=== PATIENT | female | born 1980 | race Caucasian/White ===

== ENCOUNTER 2016-11-08 06:03 | Emergency (ER) | payer MEDICAID, OTHER ==
[~2016-11-08] VITALS: Ht 170.2 cm; Wt 60.0 kg
[2016-11-08 06:09] VITALS: Ht 170.2 cm; Wt 60.0 kg
[2016-11-08 07:05] LABS: ADD SCAN DIFF NO
[2016-11-08 07:06] LABS: BASOPHILS % 0.1 % (0.0-2.0); EOSINOPHILS # 0.1 10^3/ul (0.0-0.5); EOSINOPHILS % 1.2 % (0.0-7.0); HEMATOCRIT 29.3 % (37.0-47.0); HEMOGLOBIN 8.5 g/dl (12.0-16.0); LYMPHOCYTES # 1.5 10^3/ul (0.8-2.9); LYMPHOCYTES % 14.4 % (15.0-51.0); MEAN CORPUSCULAR HEMOGLOBIN 20.6 pg (29.0-33.0); MEAN CORPUSCULAR VOLUME 71.1 fl (82.0-101.0); MEAN PLATELET VOLUME 9.2 fl (7.4-10.4); MONOCYTE # 0.8 10^3/ul (0.3-0.9); MONOCYTES % 8.1 % (0.0-11.0); NEUTROPHIL # 7.7 10^3/ul (1.6-7.5); NEUTROPHILS % 75.5 % (39.0-77.0); PLATELET COUNT 430 10^3/UL (140-415); RED BLOOD COUNT 4.12 10^6/ul (4.20-5.40); RED CELL DISTRIBUTION WIDTH 17.1 % (11.5-14.5); WHITE BLOOD COUNT 10.2 10^3/ul (4.8-10.8)
[2016-11-08 07:30] LABS: ALBUMIN 4.1 g/dl (3.3-4.9); POTASSIUM 3.1 mmol/L (3.5-5.1)
[2016-11-08 07:32] LABS: CREATININE 0.66 mg/dl (0.44-1.00)
[2016-11-08 07:33] LABS: ALBUMIN/GLOBULIN RATIO 1.28; BILIRUBIN,INDIRECT 0.4 mg/dl (0-1.1); BILIRUBIN,TOTAL 0.4 mg/dl (0.2-1.3); CALCIUM 9.4 mg/dl (8.4-10.2); TOTAL PROTEIN 7.3 g/dl (6.1-8.1)
[2016-11-08] MEDS: LORAZEPAM 2 MG INJ IM ONE ×2 (08:35→08:37)
[2016-11-08 08:50] LABS: ACETAMINOPHEN < 10.0 ug/ml (10.0-30.0); ETHANOL < 10.0 mg/dl; SALICYLATE < 1.0 mg/dl (5.0-30.0)
[2016-11-08] MEDS ORDERED: ONDANSETRON 4 MG INJ IV STA (09:06)
[2016-11-08] MEDS ORDERED: HYDROmorphONE 1 MG/ML SYG IV STA (09:06)
--- NOTE | 2016-11-08 10:07 | RADRPT ---
PROCEDURE: CT Brain without contrast. CLINICAL INDICATION: Altered mental status. TECHNIQUE: A CT of the brain was performed on a multidetector CT scanner utilizing axial sections from the skull base through the vertex without contrast. Images were reviewed on a high-resolution [employer] workstation. Exam CTDI = 45.01 mGy and the DLP = 720.23 mGy-cm. One or more of the following dose reduction techniques were used: Automated exposure control Adjustment of the mA and/or kV according to patient size. Use of iterative reconstruction technique. COMPARISON: None available FINDINGS: There is no evidence of intracranial hemorrhage, mass effect or midline shift. No abnormal intra-ax ial or extra-axial fluid collections are seen. The density of the brain is normal and the dalal/whit e matter differentiation is well preserved. The osseous structures are unremarkable. Paranasal sin uses are clear. IMPRESSION: 1. No intracranial hemorrhage, mass effect or midline shift. RPTAT: PP .Royal Dillon MD, MD Date Time Electronically viewed and signed by .Royal Dillon MD, on 11/08/2016 10:07 .O/
[2016-11-08 10:17] LABS: BARBITURATES NEGATIVE (NEGATIVE); BENZODIAZEPINES POSITIVE (NEGATIVE); CANNABINOIDS NEGATIVE (NEGATIVE); COCAINE NEGATIVE (NEGATIVE); OPIATES NEGATIVE (NEGATIVE)
--- NOTE | 2016-11-08 12:59 | ERA ---
ER Documentation Chief Complaint Date/Time DATE: 11/08/16 TIME: 12:52 Chief Complaint HPI This is a 36-year-old female brought into the emergency room prior to my arrival my shift this morning. Patient was extremely belligerent with EMS and she required 4 point restraints in order to be put into her stretcher . the patient was apparently found in the streets acting "crazy". The patient admits to using methamphetamines yesterday and this morning. She is a very limited historian. The patient's not very forthcoming on her symptoms or which she has been doing for the past 24 hours. She tends to just stare at me and answer minimal questions. She is denying any pain currently ROS All systems reviewed and are negative except as per history of present illness. Medications Home Meds Unable to Obtain Active Prescriptions or Reported Meds Allergies Allergies: Coded Allergies: No Known Allergy (Unverified , 11/08/16) PMhx/Soc Medical and Surgical Hx: Unable to obtain Hx Substance Use: Yes (meth use this morning) Smoking Status: Unknown if ever smoked FmHx Family History: No coronary disease Physical Exam Vitals Vital Signs Date Time Temp Pulse Resp B/P Pulse Ox O2 Delivery O2 Flow Rate FiO2 11/08/16 09:42 92 16 123/84 96 Room Air 11/08/16 06:13 85 17 100 Room Air 11/08/16 06:09 98.3 92 16 118/66 99 Physical Exam Const: Well-developed, well-nourished Head: Atraumatic, normocephalic Eyes: Normal Conjunctiva, PERRLA, EOMI, normal sclera, no nystagmus ENT: Normal External Ears, Nose and Mouth, moist mucus membranes. Neck: Full range of motion. No meningismus, no lymphadenopathy. Resp: Clear to auscultation bilaterally, no wheezing, rhonchi, rales Cardio: Regular rate and rhythm, no murmurs, S1 S2 present Abd: Soft, non tender x 4, non distended. Normal bowel sounds, no guarding or rebound, no pulsitile abdominal masses or bruits Skin: No petechiae or rashes, no ecchymosis , no maculopapular rash Back: No midline or flank tenderness Ext: No cyanosis, or edema, FROM x 4, normal inspection, neurovascularly intact x 4 Neur: Awake and alert, STR 5/5 x 4, sensation intact x 4, no focal findings, cerebellum intact Psych: [Patient has a flat affect. She stares to me for prolonged periods of time and then will answer some basic questions. She says she did use methamphetamines, denies suicidal ideation Result Diagram: 11/08/16 0650 11/08/16 0650 Results 24 hrs Laboratory Tests Test 11/08/16 06:50 11/08/16 09:00 White Blood Count 10.210^3/ul Red Blood Count 4.1210^6/ul Hemoglobin 8.5g/dl Hematocrit 29.3% Mean Corpuscular Volume 71.1fl Mean Corpuscular Hemoglobin 20.6pg Mean Corpuscular Hemoglobin Concent 29.0g/dl Red Cell Distribution Width 17.1% Platelet Count 16014^3/UL Mean Platelet Volume 9.2fl Neutrophils % 75.5% Lymphocytes % 14.4% Monocytes % 8.1% Eosinophils % 1.2% Basophils % 0.1% Nucleated Red Blood Cells % 0.0/100WBC Neutrophils # 7.710^3/ul Lymphocytes # 1.510^3/ul Monocytes # 0.810^3/ul Eosinophils # 0.110^3/ul Basophils # 0.010^3/ul Nucleated Red Blood Cells # 0.010^3/ul Sodium Level 142mmol/L Potassium Level 3.1mmol/L Chloride Level 104mmol/L Carbon Dioxide Level 26mmol/L Anion Gap 15 Blood Urea Nitrogen 11mg/dl Creatinine 0.66mg/dl Glucose Level 110mg/dl Calcium Level 9.4mg/dl Total Bilirubin 0.4mg/dl Direct Bilirubin 0.00mg/dl Indirect Bilirubin 0.4mg/dl Aspartate Amino Transf (AST/SGOT) 38IU/L Alanine Aminotransferase (ALT/SGPT) 39IU/L Alkaline Phosphatase 72IU/L Total Protein 7.3g/dl Albumin 4.1g/dl Globulin 3.20g/dl Albumin/Globulin Ratio 1.28 Serum HCG, Qualitative NEGATIVE Salicylates Level < 1.0mg/dl Acetaminophen Level < 10.0ug/ml Ethyl Alcohol Level < 10.0mg/dl Urine Opiates Screen NEGATIVE Urine Barbiturates NEGATIVE Urine Amphetamines Screen POSITIVE Urine Benzodiazepines Screen POSITIVE Urine Cocaine Screen NEGATIVE Urine Cannabinoids NEGATIVE Current Medications Medications (Trade) Dose Ordered Sig/Miah Route PRN Reason Start Time Stop Time Status Last Admin Dose Admin Lorazepam (Ativan) 2 mg ONCE ONCE IM 11/08/16 08:00 11/08/16 08:01 DC 11/08/16 08:37 Hydromorphone HCl (Dilaudid) 1 mg ONCE STAT IV 11/08/16 09:06 11/08/16 09:07 DC 11/08/16 09:32 Ondansetron HCl (Zofran Inj) 4 mg ONCE STAT IV 11/08/16 09:06 11/08/16 09:07 DC 11/08/16 09:32 Procedures/MDM During the workup the patient try to run out of the emergency room. She was obtained by 3 of our staff and brought back into the ER She was yelling and cursing in Wolof talking about the devil She was put back into her room given some sedation. We will get more labs and psych workup and have her evaluated by telemetry psych. Patient does not seem stable to be discharged just based on her methamphetamine use. The patient is a very strange affect seems to be bordering on psychotic PROCEDURE: CT Brain without contrast. CLINICAL INDICATION: Altered mental status. TECHNIQUE: A CT of the brain was performed on a multidetector CT scanner utilizing axial sections from the skull base through the vertex without contrast. Images were reviewed on a high-resolution PACS workstation. Exam CTDI = 45.01 mGy and the DLP = 720.23 mGy-cm. One or more of the following dose reduction techniques were used: Automated exposure control Adjustment of the mA and/or kV according to patient size. Use of iterative reconstruction technique. COMPARISON: None available FINDINGS: There is no evidence of intracranial hemorrhage, mass effect or midline shift. No abnormal intra-axial or extra-axial fluid collections are seen. The density of the brain is normal and the dalal/white matter differentiation is well preserved. The osseous structures are unremarkable. Paranasal sinuses are clear. IMPRESSION: 1. No intracranial hemorrhage, mass effect or midline shift. RPTAT: PP .Royal Dillon MD, MD Date Time Electronically viewed and signed by .Royal Dillon MD, on 11/08/2016 10:07 .O/ CC: JEREMI HARP DO I paged his telemetry psychiatrist for evaluation Patient will likely be transferred to psych facility Departure Diagnosis: Primary Impression: Drug use Additional Impression: Psychosis Qualified Code: F29 - Psychosis, unspecified psychosis type Condition: Stable JEREMI HARP DO November 08, 2016 12:59
--- NOTE | 2016-11-08 13:55 | PSY ---
Date/Time of Note Date/Time of Note DATE: 11/08/16 TIME: 16:47 Psychiatric Subjective Eval Consent Pt consented to telemedicine: Yes Subjective Evaluation Patient location: emergency Chief Complaint: erratic behavior History of present illness HPI (interview performed with nurse interpreting): The patient is a 36 yo female with no formal psych hx. She was bib ems called by neighbors early this morning as pt was acting erratically (screaming). This was occurring in the context of pt using methamphetamine.She reports she has been using methamphetamine for several days and has been erratic for several days, including jumping off of a one story celing while intoxicated. Pt denies any other psych sxs, denies depression, si, ah. Past Psych Hx: pt denies any psych hx or treatment of any sort, no suicide attempts PMhx: pt denies Meds: pt denies All: pt denies MSE: appears tired, like she just woke up (appears that she did just wake up), cooperative, normal speech, somewhat tired, organized, no delusions, was a bit confused about details but was able to remember, no avh no delusions no si/hi Soc Hx: Reports that she lives with a roommate, looking for a job Medical history Problems Medical Problems: (1) Drug use Status: Acute (2) Psychosis Status: Acute Allergies: Coded Allergies: No Known Allergy (Unverified , 11/08/16) Psychiatric Objective Eval Mental Status Examination: Laboratory Results Laboratory Tests Test 11/08/16 06:50 11/08/16 09:00 White Blood Count 10.210^3/ul Red Blood Count 4.1210^6/ul Hemoglobin 8.5g/dl Hematocrit 29.3% Mean Corpuscular Volume 71.1fl Mean Corpuscular Hemoglobin 20.6pg Mean Corpuscular Hemoglobin Concent 29.0g/dl Red Cell Distribution Width 17.1% Platelet Count 73429^3/UL Mean Platelet Volume 9.2fl Neutrophils % 75.5% Lymphocytes % 14.4% Monocytes % 8.1% Eosinophils % 1.2% Basophils % 0.1% Nucleated Red Blood Cells % 0.0/100WBC Neutrophils # 7.710^3/ul Lymphocytes # 1.510^3/ul Monocytes # 0.810^3/ul Eosinophils # 0.110^3/ul Basophils # 0.010^3/ul Nucleated Red Blood Cells # 0.010^3/ul Sodium Level 142mmol/L Potassium Level 3.1mmol/L Chloride Level 104mmol/L Carbon Dioxide Level 26mmol/L Anion Gap 15 Blood Urea Nitrogen 11mg/dl Creatinine 0.66mg/dl Glucose Level 110mg/dl Calcium Level 9.4mg/dl Total Bilirubin 0.4mg/dl Direct Bilirubin 0.00mg/dl Indirect Bilirubin 0.4mg/dl Aspartate Amino Transf (AST/SGOT) 38IU/L Alanine Aminotransferase (ALT/SGPT) 39IU/L Alkaline Phosphatase 72IU/L Total Protein 7.3g/dl Albumin 4.1g/dl Globulin 3.20g/dl Albumin/Globulin Ratio 1.28 Serum HCG, Qualitative NEGATIVE Salicylates Level < 1.0mg/dl Acetaminophen Level < 10.0ug/ml Ethyl Alcohol Level < 10.0mg/dl Urine Opiates Screen NEGATIVE Urine Barbiturates NEGATIVE Urine Amphetamines Screen POSITIVE Urine Benzodiazepines Screen POSITIVE Urine Cocaine Screen NEGATIVE Urine Cannabinoids NEGATIVE Assessment and Plan Assessment/Diagnosis 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 Appears to be sobering now. Currently has no psychotic sxs and no si/hi. She is nto at acute risk of harm to herself or others and when not using is able to care for herself in the community. However , she is at chronic risk of harm to herself with persistent drug use. -pt can likely be discharged. However, before she can be discharged must obtain parallel hx from either her roommate or someone very close who can confirm that besides very recent drug use has not been acting bizarrely; if this cannot be obtain must reconsider hospitalization -if discharged would also have to have fu outpatient psych appt within 24-48 hours, with substance focus 2525 Recommendation: Release PING June November 08, 2016 13:55
[2016-11-08] MEDS ORDERED: IOHEXOL 300MG/ML 150 ML BTL ONE (16:25)
[2016-11-08] MEDS ORDERED: SOD CHLORIDE 0.9% 100 ML ONE (16:25)
[2016-11-08] MEDS ORDERED: ONDANSETRON 4 MG INJ IV ONE (16:30)
[2016-11-08] MEDS ORDERED: morphine 2 MG INJ IV ONE (16:30)
--- NOTE | 2016-11-08 16:57 | RADRPT ---
PROCEDURE: XR Chest. CLINICAL INDICATION: Trauma TECHNIQUE: Single frontal view of the chest was obtained. COMPARISON: None. FINDINGS: The heart and mediastinum are within normal limits. The lungs are clear. There is no significant pleural effusion or pneumothorax. IMPRESSION: No acute disease. RPTAT: EE Physician Gina Date Time Electronically viewed and signed by Gasper Butt Physician on 11/08/2016 16:56 RA/
--- NOTE | 2016-11-08 17:40 | EN ---
Date/Time of Note Date/Time of Note DATE: 11/08/16 TIME: 17:38 ER Progress Note The patient was about to be discharged when the nurse brought to my attention of the patient was now reporting that she jumped or fell out of a second story building. She is describing lumbar back pain. The patient is a very difficult historian. 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 The patient does appear to be uncomfortable however was reported to me that she was ambulatory in the emergency room. Now she is refusing to sit for because of the pain. The patient had a psychiatric evaluation and was deemed ready to discharge. However at this point she is stating that a voice in her head told her to jump off of this second-story floor. Repeat physical exam Airway is intact Bilateral breath sounds Strong distal pulses No obvious deficits General: Well developed, well nourished, somewhat uncomfortable Head: Normocephalic, atraumatic Eyes: Pupils equally reactive, EOM intact ENT: Moist mucous membranes Neck: Supple, no lymphadenopathy, No midline tenderness, deformities, step-offs to the cervical spine, full active and passive range of motion without midline pain. Respiratory: Lungs clear bilaterally, no distress, no chest wall tenderness, no crepitus Cardiovascular: RRR, no murmurs, rubs, or gallops Abdominal: Soft, mild diffuse tenderness that appears to be inconsistent, non- distended, no peritoneal signs, pelvis is stable : Deferred MSK: No edema, no unilateral swelling, 5/5 strength, no midline tenderness deformities or step-offs to the thoracolumbar spine, paraspinal soft tissue tenderness to the lumbar back Neurologic: Alert and oriented, moving all extremities, normal speech, no focal weakness, no cerebellar signs Skin: No ecchymoses or bruising to the chest or abdomen Psych: Flat affect, hallucinations, potential suicidal thoughts, disorganized The patient is a difficult historian. For this reason I believe CT imaging of the lumbar spine and abdomen and pelvis would be appropriate. Chest x-ray will also be obtained. I believe the patient would benefit from repeat telemetry medicine psychiatry evaluation as this is new information I am concerned for the patient's well-being as she is disorganized and having hallucinations telling her to hurt herself. Inpatient hospitalization may be appropriate and necessary. Diagnostic imaging: Chest x-ray: I reviewed and interpreted a 1 view of the chest Mediastinum: No enlargement Cardiac silhouette: No cardiomegaly Airspace: Clear lung hawley bilaterally without evidence of pneumothorax Bones: No evidence of fracture PAOLO LEWIS MD November 08, 2016 17:40
--- NOTE | 2016-11-08 18:22 | RADRPT ---
PROCEDURE: CT lumbar spine without contrast CLINICAL INDICATION: Trauma, back pain. TECHNIQUE: A CT scan of the lumbar spine was performed without intravenous contrast. Coronal and s agittal reformatted images were generated. CTDIvol: 8.43 mGy. DLP: 149.98 mGy-cm. One or more of the following dose reduction techniques were used: - Automated exposure control. - Adjustment of the mA and/or kV according to patient size. - Use of iterative reconstruction technique. COMPARISON: None. FINDINGS: There is an acute L2 Chance fracture with 40% loss of vertebral body height and 11 mm retropulsion, leading to severe spinal canal stenosis at this level. There is also fracture line extension throug h the right lamina and widening of the interspinous interval at L1-L2. There is also widening of the interspinous interval at L2-L3. Bone mineralization is normal and there is no suspicious osseous lesion. T12-L1 through L3-L4: There is no significant degenerative change. No spinal canal stenosis or neur al foraminal narrowing is seen. L4-L5: There is minimal disk bulging without spinal canal stenosis. Minimal bilateral neural forami nal narrowings noted due to disk bulging. L5-S1: There is mild posterior bulging without spinal canal stenosis. Mild bilateral neural foramin al narrowing is noted due to disk bulging. The extra spinal soft tissues are unremarkable. IMPRESSION: 1. Acute L2 Chance fracture with 40% loss of vertebral body height and 11 mm retropulsion, leading to severe spinal canal stenosis at this level. There is also fracture line extension through the ri ght lamina. This is an unstable three column fracture. 2. Widening of the interspinous intervals at L1-L2 and L2-L3, consistent with interspinous ligament injuries at these levels. Call report: A call report of the findings was made to Dr. Martin at 06:18 p.m. on 11/08/2016. RPTAT: HTAR .Surya Hill MD, MD Date Time Electronically viewed and signed by .Surya Hill MD, on 11/08/2016 18:22 .R/
[2016-11-08] MEDS ORDERED: OLANZAPINE (ODT) 5 MG TAB ODT STA (18:23)
--- NOTE | 2016-11-08 18:29 | RADRPT ---
PROCEDURE: CT of the abdomen and pelvis CLINICAL INDICATION: Trauma with abdominal pain TECHNIQUE: The study was performed utilizing a [employer] 64-slice multidetector CT scanner. Dir ect spiral axial sections were obtained through the abdomen and pelvis with intravenous contrast. Af ter administration of 90 cc of Omnipaque-300, postcontrast images were obtained. Coronal and sagitt al reformatted images were performed. The CTDI vol is 5.1 mGy and the DLP is 276.16 mGy-cm. The cherelle ges were reviewed on a PACS workstation. COMPARISON: No prior studies are available for comparison. FINDINGS: CT abdomen: The lung bases are clear. The heart is not enlarged. No pericardial effusion is seen. The liver is normal in size and contour. No focal liver lesions or intrahepatic biliary dilatation is seen. The gallbladder is normal. No common bile duct dilatation is seen. The spleen, pancreas, a nd adrenal glands are unremarkable in appearance. The kidneys are normal in size and contour enhance normally. No evidence of hydronephrosis or nephrolithiasis is seen. The stomach is unremarkable. The large bowel is stool-filled. The small and large bowel are otherwi se unremarkable in course and caliber. No inflammatory changes in the periappendiceal region is see n. No enlarged lymph nodes or fluid collections are seen. The aorta is normal in caliber. CT pelvis: A fracture of the superior endplate of L2 is seen with approximately 10 mm of retropulsio n. Compromise of greater than 50% of the central canal is seen. A focal kyphotic deformity is seen at L2. No other fracture is seen. No subluxation is seen. No pelvic mass, adenopathy, or focal fl uid collection is seen. There is no free fluid. The urinary bladder is normal. A small right adnex al cystic structure is seen measuring approximately 2.3 x 1.4 cm in size. The remaining pelvic organ s are unremarkable. IMPRESSION: 1. L2 superior endplate fracture with approximate 10 mm of retropulsion with compromise of good and 50% of the central canal with a focal kyphotic deformity. 2. Stool filled large bowel. 3. Small right adnexal cystic structure which may be physiologic in nature. Results were discussed with Serafin Martin at 11/08/2016 6:27:50 PM RPTAT: HPNM Carlos Mendez, Physician Date Time Electronically viewed and signed by Carlos Mendez, Physician on 11/08/2016 18:29 /
--- NOTE | 2016-11-08 18:56 | RADRPT ---
PROCEDURE: XR Right Foot. CLINICAL INDICATION: Trauma. Right foot pain. TECHNIQUE: Three views. Frontal, lateral, and oblique. COMPARISON: None. FINDINGS: There is no fracture or dislocation. The soft tissues are normal. Articular surfaces are intact. There is no lytic or blastic lesion. There is no radiopaque foreign body. IMPRESSION: 1. Normal images of the right foot. RPTAT: QQ .Thuan Alcala MD, MD Date Time Electronically viewed and signed by .Thuan Alcala MD, on 11/08/2016 18:56 .R/
--- NOTE | 2016-11-08 18:56 | RADRPT ---
PROCEDURE: XR Left Foot. CLINICAL INDICATION: Trauma due to a fall. Left foot pain. TECHNIQUE: Three views. Frontal, lateral, and oblique. COMPARISON: None. FINDINGS: There is no fracture or dislocation. The soft tissues are normal. Articular surfaces are intact. There is no lytic or blastic lesion. There is no radiopaque foreign body. IMPRESSION: 1. Normal images of the left foot. RPTAT: QQ .Thuan Alcala MD, MD Date Time Electronically viewed and signed by .Thuan Alcala MD, on 11/08/2016 18:56 .R/
--- NOTE | 2016-11-08 19:52 | RADRPT ---
PROCEDURE: CT cervical spine without contrast CLINICAL INDICATION: Trauma. Neck pain. TECHNIQUE: CT scan of the cervical spine was performed on a multidetector scanner. No IV contrast was administered. Coronal and sagittal reformatted images were obtained from the axial source imag es. Images were reviewed on a high-resolution PACS workstation. Exam CTDlvol = 22 mGy and DLP = 510 mGy-cm. One of the following 3 dose reduction techniques were used: Automated exposure control; ad justment of the mA and/or kV according to patient size; or use of iterative reconstruction technique . COMPARISON: None available FINDINGS: No fracture is identified. There is maintenance of height of the vertebral bodies. There is mild r eversal of the normal cervical lordosis. Alignment is otherwise maintained. There is no spondyloli sthesis. Degenerative changes are present, greatest at C6-7. Prevertebral soft tissues are unremar kable. IMPRESSION: 1. No fracture. 2. Mild reversal of the normal cervical lordosis most commonly seen with spasm versus positioning. 3. Mild degenerative changes greatest at C6-7. RPTAT: HMVK .Michael Costello MD, MD Date Time Electronically viewed and signed by .Michael Costello MD, MD on 11/08/2016 19:52 .K/
--- NOTE | 2016-11-08 19:59 | RADRPT ---
PROCEDURE: CT thoracic spine without contrast CLINICAL INDICATION: Trauma. Pain. TECHNIQUE: CT scan of the thoracic spine was performed a multidetector scanner. No IV contrast wa s administered. Coronal and sagittal reformatted images were obtained from the axial source images. Exam CTDlvol = 60 mGy and DLP = 604 mGy-cm. One of the following 3 dose reduction techniques wer e used: Automated exposure control; adjustment of the mA and/or kV according to patient size; or use of iterative reconstruction technique. COMPARISON: None available FINDINGS: Alignment remains intact. There is no spondylolithesis. No acute fracture is seen. There is maint enance of height of the vertebral bodies. No gross degenerative changes are noted. Paravertebral s oft tissues are unremarkable. IMPRESSION: 1. No acute post-traumatic abnormality. RPTAT: HMVK .Michael Costello MD, MD Date Time Electronically viewed and signed by .Michael Costello MD, MD on 11/08/2016 19:58 .K/
--- NOTE | 2016-11-08 20:05 | RADRPT ---
PROCEDURE: CT Chest without contrast. CLINICAL INDICATION: Trauma, chest pain. TECHNIQUE: A CT scan of the chest without contrast was performed. Coronal and sagittal reformatted images were obtained from the axial source images. CTDIvol: 8.41 mGy. DLP: 320.75 mGy-cm. One or more of the following dose reduction techniques were used: - Automated exposure control. - Adjustment of the mA and/or kV according to patient size. - Use of iterative reconstruction technique. COMPARISON: None. FINDINGS: There is no suspicious thyroid lesion. No thoracic lymphadenopathy is seen. The trachea and mainst em bronchi are patent. The heart is not enlarged. There is no pericardial effusion. There is mild atelectasis in both lower lobes. No pleural effusion or pneumothorax is identified. Limited evaluation of the upper abdomen is unremarkable. There is no suspicious osseous lesion. IMPRESSION: 1. Unremarkable CT scan of the chest. RPTAT: HTAR .Surya Hill MD, MD Date Time Electronically viewed and signed by .Surya Hill MD, on 11/08/2016 20:05 .R/
[2016-11-08 20:42] VITALS: BP 111/84; PULSE 110; RESP 22; TEMP 99
== END 2016-11-08 22:30 | disposition short-term general hospital (02) ==
LOC: E/R 06:03
DX: F15.90 Other stimulant use, unspecified, uncomplicated (principal); R40.2222 Coma scale, best verbal response, incomprehensible words, at arrival to emergency department; F29 Unspecified psychosis not due to a substance or known physiological condition; R40.2352 Coma scale, best motor response, localizes pain, at arrival to emergency department; R40.2142 Coma scale, eyes open, spontaneous, at arrival to emergency department
CPT/HCPCS: 36415; 70450; 71010; 71250; 72125; 72128; 72131; 73630; 74177; 80053; 80306; 80307; 84703; 85025; 96372; 96374; 96375; 96376; J1170; J2060; J2270; J2405; Q9967; Z7502; Z7610